=== PATIENT | female | born 1960 | race Caucasian/White ===

== ENCOUNTER 2024-06-05 12:50 | Emergency (ER) | payer SELFPAY ==
[~2024-06-05] VITALS: Ht 162.6 cm; Wt 77.0 kg
[2024-06-05 13:02] VITALS: O2SAT 98
[2024-06-05 14:59] LABS: CHLORIDE 103 mEq/L (98-107); POTASSIUM 3.8 mEq/L (3.5-5.1); SODIUM 136 mEq/L (136-145)
[2024-06-05 15:00] LABS: CALCIUM 9.5 mg/dL (8.7-10.4); CARBON DIOXIDE 29 mEq/L (21-32)
[2024-06-05 15:02] LABS: BASOPHILS % 0.5 % (0.0-2.0); EOSINOPHILS % 0.9 % (0.0-5.0); HEMATOCRIT. 40.3 % (36.0-48.0); HEMOGLOBIN. 13.2 g/dL (12.0-16.0); LYMPHOCYTES % 28.4 % (20.0-50.0); MEAN CORPUSCULAR HEMOGLOBIN 27.4 pg (28.0-32.0); MEAN CORPUSCULAR HGB CONC 32.7 g/dL (31.0-37.0); MEAN CORPUSCULAR VOLUME 83.9 fL (81.0-99.0); MONOCYTES % 3.9 % (2.0-8.0); NEUTROPHILS % 66.3 % (40.0-76.0); PLATELET 280 x1000/uL (130-400); RED CELL DISTRIBUTION WIDTH 14.1 % (11.6-14.6); WHITE BLOOD COUNT 7.5 x1000/uL (4.5-11.0)
[2024-06-05 15:05] LABS: CREATININE 0.8 mg/dL (0.6-1.0); GLUCOSE 221 mg/dL (70-105); UREA NITROGEN BLOOD 10 mg/dL (9-23)
[2024-06-05 15:06] LABS: TROPONIN I HIGH SENSITIVITY 17 ng/L (3.0-34)
[2024-06-05 15:07] LABS: ALANINE AMINOTRANSFERASE 30 IU/L (10-49); ALBUMIN 4.5 g/dL (3.2-4.8); ASPARTATE AMINOTRANSFERASE 25 IU/L (<34); BILIRUBIN TOTAL 0.4 mg/dL (0.1-1.0); PROTEIN TOTAL 7.1 g/dL (6.0-8.3)
[2024-06-05 15:14] LABS: BILIRUBIN DIRECT < 0.1 mg/dL (<=3.0)
[2024-06-05 15:21] LABS: PROTHROMBIN TIME 10.8 sec (9.6-11.0)
[2024-06-05 21:09] LABS: TROPONIN I HIGH SENSITIVITY 17 ng/L (3.0-34)
[2024-06-05 21:11] VITALS: BP 168/93; PULSE 69; RESP 18; TEMP 36.78072; O2SAT 99
== END 2024-06-05 21:25 | disposition home or self-care (01) ==
LOC: ER 12:50
DX: I10 Essential (primary) hypertension (principal); R51.9 Headache, unspecified
CPT/HCPCS: 36415; 71045; 80048; 80076; 84484; 85025; 99284